=== PATIENT | female | born 2000 | race American Indian/Alaskan Native ===

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

== ENCOUNTER 2021-04-12 09:56 | Emergency (ER) | payer MEDICAID, OTHER ==
[2021-04-12 11:25] VITALS: BP 155/70
[2021-04-12] MEDS ORDERED: FAMOTIDINE 20 MG TAB PO ONE (11:42)
[2021-04-12] MEDS ORDERED: LIDOCAINE VISCOUS 2% 15 ML ORAL LIQD PO ONE (11:42)
[2021-04-12] MEDS ORDERED: ALUM-MAG HYDROXIDE-SIMETHICONE 200-200-20MG/5ML ORAL LIQD 30 ML PO ONE (11:42)
--- NOTE | 2021-04-12 11:55 | Emergency Department Report ---
ED General Adult HPI - General Chief complaint: Abdominal Pain Stated complaint: UPPER ABD PAIN/WITH BURNING Time Seen by Provider: 04/12/21 11:33 Source: patient Mode of arrival: Ambulatory Limitations: No Limitations - History of Present Illness Initial comments: Patient is a 20-year-old female who presents emergency room complaints of epigastric abdominal discomfort that began this morning. She states it feels like a burning sensation. Patient states that she ate a quesadilla with some sauce and pizza. She denies any vomiting, fever, urinary symptoms, constipation, hematochezia, melena, hematemesis. No allergies to medications. No past abdominal surgical history. Last menstrual cycle 03/24/2021. - Related Data Previous Rx's Medication Instructions Recorded Last Taken Type Ibuprofen [Motrin] 600 mg PO Q8H PRN #30 tablet 02/27/14 Unknown Rx Sulfamethoxazole/Trimethoprim 1 each PO BID #20 tablet 02/27/14 Unknown Rx [Bactrim Ds] Ciprofloxacin HCl [Ciprofloxacin 500 mg PO Q12HR #14 tab 12/20/18 Unknown Rx TAB] Famotidine [Pepcid] 20 mg PO BID #20 tablet 12/20/18 Unknown Rx Ondansetron [Zofran ODT TAB] 8 mg PO Q12HR #30 tab.rapdis 12/20/18 Unknown Rx Famotidine [Pepcid] 40 mg PO QHS #30 tablet 04/12/21 Unknown Rx Sucralfate [Carafate] 1 gm PO ACHS 7 Days #21 tablet 04/12/21 Unknown Rx Allergies Allergy/AdvReac Type Severity Reaction Status Date / Time No Known Allergies Allergy Verified 02/26/14 23:13 ED Review of Systems ROS: Stated complaint: UPPER ABD PAIN/WITH BURNING Other details as noted in HPI Comment: All other systems reviewed and negative ED Past Medical Hx - Past Medical History Hx Diabetes: Yes - Social History Smoking Status: Never Smoker - Medications Home Medications: Home Medications Medication Instructions Recorded Confirmed Last Taken Type Ibuprofen [Motrin] 600 mg PO Q8H PRN #30 tablet 02/27/14 Unknown Rx Sulfamethoxazole/Trimethoprim 1 each PO BID #20 tablet 02/27/14 Unknown Rx [Bactrim Ds] Ciprofloxacin HCl [Ciprofloxacin 500 mg PO Q12HR #14 tab 12/20/18 Unknown Rx TAB] Famotidine [Pepcid] 20 mg PO BID #20 tablet 12/20/18 Unknown Rx Ondansetron [Zofran ODT TAB] 8 mg PO Q12HR #30 tab.rapdis 12/20/18 Unknown Rx Famotidine [Pepcid] 40 mg PO QHS #30 tablet 04/12/21 Unknown Rx Sucralfate [Carafate] 1 gm PO ACHS 7 Days #21 tablet 04/12/21 Unknown Rx ED Physical Exam - General Limitations: No Limitations General appearance: alert, in no apparent distress - Head Head exam: Present: atraumatic, normocephalic - Eye Eye exam: Present: normal appearance - ENT ENT exam: Present: mucous membranes moist - Respiratory Respiratory exam: Present: normal lung sounds bilaterally. Absent: respiratory distress, wheezes, rales, rhonchi, stridor, chest wall tenderness, accessory muscle use, decreased breath sounds, prolonged expiratory - Cardiovascular Cardiovascular Exam: Present: regular rate, normal rhythm, normal heart sounds. Absent: systolic murmur, diastolic murmur, rubs, gallop - GI/Abdominal GI/Abdominal exam: Present: soft, normal bowel sounds, other (negative murphys sign, no mcburneys point ttp). Absent: distended, tenderness, guarding, rebound, rigid - Neurological Exam Neurological exam: Present: alert, oriented X3 - Psychiatric Psychiatric exam: Present: normal affect, normal mood - Skin Skin exam: Present: warm, dry, intact ED Course Vital Signs 04/12/21 04/12/21 11:23 11:56 Temperature 98.4 F 98.0 F Pulse Rate 75 78 Respiratory 18 12 Rate Blood Pressure 155/70 O2 Sat by Pulse 100 98 Oximetry ED Medical Decision Making - Medical Decision Making Patient is a 20-year-old female who presents emergency room complaints of epigastric abdominal discomfort that began this morning. She states it feels like a burning sensation. Patient states that she ate a quesadilla with some sauce and pizza. She denies any vomiting, fever, urinary symptoms, constipation, hematochezia, melena, hematemesis. No allergies to medications. No past abdominal surgical history. Last menstrual cycle 03/24/2021. Vitals are stable. No abdominal tenderness on exam, no guarding, no rebound, no rigidity, no peritoneal signs, negative Polanco sign, no McBurney's point tenderness. Patient has no obstructive symptoms or signs. Symptoms and examination appear most likely consistent with GERD. Patient given medications while in the emergency department with improvement of her symptoms. Patient given prescription for medications. Advised patient Please take medication as prescribed. Increase your fluid intake. Please avoid spicy food, tomato-based, bbq base, eating and laying flat, eating large meals. Follow-up with your primary care doctor. Follow-up with a GI doctor. Return to emergency room for any new or worsening symptoms. Critical care attestation.: If time is entered above; I have spent that time in minutes in the direct care of this critically ill patient, excluding procedure time. ED Disposition Clinical Impression: GERD (gastroesophageal reflux disease) Qualifiers: Esophagitis presence: without esophagitis Qualified Code(s): K21.9 - Gastro- esophageal reflux disease without esophagitis Disposition: HOME / SELF CARE / HOMELESS Is pt being admited?: No Does the pt Need Aspirin: No Condition: Stable Instructions: Gastroesophageal Reflux Disease, Adult, [id number], Abdominal Pain (ED) Additional Instructions: Please take medication as prescribed. Increase your fluid intake. Please avoid spicy food, tomato-based, bbq base, eating and laying flat, eating large meals. Follow-up with your primary care doctor. Follow-up with a GI doctor. Return to emergency room for any new or worsening symptoms. Prescriptions: Famotidine [Pepcid] 40 mg PO QHS #30 tablet Sucralfate [Carafate] 1 gm PO ACHS 7 Days #21 tablet Referrals: DAVID WINSTON MD [Staff Physician] - 3-5 Days [facility] [Provider Group] - 3-5 Days Time of Disposition: 12:23 Print Language: ROMANSH
== END 2021-04-12 12:48 | disposition home or self-care (01) ==
LOC: ED 09:56
DX: K21.9 Gastro-esophageal reflux disease without esophagitis (principal); E11.9 Type 2 diabetes mellitus without complications
CPT/HCPCS: 99282